=== PATIENT | female | born 1970 | race Caucasian/White ===

== ENCOUNTER 2017-01-24 20:27 | Emergency (ER) | payer MEDICAID ==
[~2017-01-24] VITALS: Ht 165.1 cm; Wt 152.1 kg
[2017-01-24 20:56] LABS: HEMOGLOBIN 14.5 g/dL (11.7-16.4)
[2017-01-24] MEDS ORDERED: SODIUM CHLORIDE 0.9% 1,000ML IVBOLUS ONE (21:00)
[2017-01-24 21:10] LABS: ASPARTATE AMINO TRANSFERASE 73 U/L (15-37); BLOOD UREA NITROGEN 15 mg/dL (7-18)
[2017-01-24] MEDS ORDERED: SODIUM CHLORIDE FLUSH 10ML SYR IVF ONE (22:00)
[2017-01-24 22:30] VITALS: BP 128/92
[2017-01-24] MEDS ORDERED: LEVO200T PO (23:19)
[2017-01-24] MEDS ORDERED: LIOT0.5P PO (23:20)
[2017-01-24] MEDS ORDERED: mirena iud (23:21)
[2017-01-25] MEDS ORDERED: LEVOTHYROXINE 200 MCG TABLET PO SCH
[2017-01-25] MEDS ORDERED: LEVOTHYROXINE 200 MCG TABLET PO ONE
== END 2017-01-25 00:37 | disposition home or self-care (01) ==
LOC: ED 22:40
DX: E03.9 Hypothyroidism, unspecified (principal); J45.909 Unspecified asthma, uncomplicated; F17.200 Nicotine dependence, unspecified, uncomplicated; F12.10 Cannabis abuse, uncomplicated; Z88.0 Allergy status to penicillin; Z88.1 Allergy status to other antibiotic agents; Z91.040 Latex allergy status; Z88.6 Allergy status to analgesic agent
CPT/HCPCS: 36415; 71020; 80053; 81001; 83880; 84439; 84443; 84703; 85025; 85379; 87086; 93005

== ENCOUNTER 2018-02-08 22:25 | Emergency (ER) | payer MEDICAID ==
[~2018-02-08] VITALS: Ht 165.1 cm; Wt 155.0 kg
[~2018-02-08 22:25] MED LIST: LEVO200T PO; LIOT0.5P PO; mirena iud
[2018-02-09 00:26] LABS: RED BLOOD COUNT 4.71 x10^6/uL (3.82-5.3)
[2018-02-09 00:27] LABS: BASOPHILS # (AUTO) 0.05 x10^3/uL (0-0.1); BASOPHILS % (AUTO) 1 % (0-1); EOSINOPHILS # (AUTO) 0.39 x10^3/uL (0-0.4); EOSINOPHILS % (AUTO) 5 % (1-7); LYMPHOCYTES # (AUTO) 2.38 x10^3/uL (1-3.4); LYMPHOCYTES % (AUTO) 27 % (22-44); MD NO; MEAN CORPUSCULAR HGB CONC 33.4 g/dL (32.4-35.8); MEAN CORPUSCULAR VOLUME 89.8 fL (80-100); MEAN PLATELET VOLUME 7.9 fL (7.4-10.4); MONOCYTES # (AUTO) 0.26 x10^3/uL (0.2-0.8); MONOCYTES % (AUTO) 3 % (2-9); NEUTROPHILS % (AUTO) 65 % (42-75); PLATELET COUNT 347 x10^3/uL (130-400); RED CELL DISTRIBUTION WIDTH 18.1 % (9.6-15.2)
[2018-02-09 00:37] LABS: ALBUMIN 3.9 g/dL (3.4-5.0); ANION GAP 8 mmol/L (5-15); CALCIUM 8.9 mg/dL (8.5-10.1); CHLORIDE 102 mmol/L (98-107)
[2018-02-09 00:40] LABS: ALANINE AMINOTRANSFERASE 57 U/L (12-78); BILIRUBIN,TOTAL 0.3 mg/dL (0.2-1.0); CREATININE 1.36 mg/dL (0.55-1.02); TOTAL PROTEIN 8.1 g/dL (6.4-8.2)
[2018-02-09 00:50] LABS: MICROSCOPIC INDICATED
[2018-02-09 00:57] LABS: CULTURE INDICATED? YES
[2018-02-09 01:06] LABS: ALKALINE PHOSPHATASE 77 U/L (45-117); FREE T4 (FREE THYROXINE) 0.15 ng/dL (0.76-1.46)
[2018-02-09 01:30] LABS: PROTHROMBIN TIME 10.3 Seconds (9.6-11.5)
[2018-02-09] MEDS ORDERED: LEVOTHYROXINE 200 MCG TABLET PO ONE (02:00)
[2018-02-09 02:11] VITALS: BP 120/75
== END 2018-02-09 02:36 | disposition home or self-care (01) ==
LOC: ED 02-09 02:01
DX: E03.8 Other specified hypothyroidism (principal); J45.909 Unspecified asthma, uncomplicated
CPT/HCPCS: 36415; 71045; 80053; 81001; 83690; 83880; 84439; 84443; 84481; 84703; 85025; 85610; 85730; 87086; 93005; 99285

== ENCOUNTER 2019-05-23 04:09 | Emergency (ER) | payer MEDICAID ==
[~2019-05-23] VITALS: Ht 165.1 cm; Wt 159.0 kg
[2019-05-23 06:49] VITALS: BP 135/76
== END 2019-05-23 06:54 | disposition home or self-care (01) ==
LOC: ED 05:44
DX: N30.00 Acute cystitis without hematuria (principal); E03.9 Hypothyroidism, unspecified; J45.909 Unspecified asthma, uncomplicated
CPT/HCPCS: 36415; 71045; 80053; 81001; 83880; 84439; 84443; 84484; 85025; 87077; 87086; 87186; 93005; 99284